=== PATIENT | male | born 1960 | race Caucasian/White ===

== ENCOUNTER 2024-12-22 22:53 | Emergency (ER) | payer OTHER, SELFPAY ==
[2024-12-22 22:59] VITALS: BP 140/77; PULSE 64; TEMP 36.8; O2SAT 94; BMI 30.3
--- NOTE | 2024-12-22 23:08 | ED_ITS ---
HPI HPI - General Adult General Chief complaint: Skin/Abscess/Foreign Body Stated complaint: HEAD INJURY Time Seen by Provider: 12/22/24 23:00 Source: patient Mode of arrival: walk-in Limitations: no limitations History of Present Illness HPI narrative: 64-year-old male presents for an injury to his face. 4 days ago he got hit chest lateral to his right eye with a piece of metal at work. In the intervening days he has noted some swelling and some redness and he is putting putting bacitracin on it. He states that when it first occurred there was a small break in the skin but no deep laceration. No LOC or vomiting. Related Data Previous Rx's ?Medication ?Instructions ?Recorded cephalexin 500 mg capsule 500 mg PO QID 10 days #40 caps 12/23/24 Allergies Allergy/AdvReac Type Severity Reaction Status Date / Time bandaids Allergy Mild Blister Uncoded 12/22/24 23:02 Opioid HPI Opioid Management Most Recent Opioid Data: No Data to Display Review of Systems ROS Narrative A ten point review of systems is negative except as noted above. Exam Narrative Exam Narrative: Nurses note and vital signs reviewed and patient is not hypoxic. General: The patient appears well and in no apparent distress. Patient is resting comfortably on cart. Skin: Warm, dry, no pallor noted. There is no rash noted. Head: Normocephalic, atraumatic Eye: Normal conjunctiva, no drainage, EOMI. PERRL; he has right periorbital swelling and some erythema. There is no laceration. There appears to be an abrasion just lateral and superior to the lateral [place] area Ears, Nose, Mouth, and Throat: oral mucosa is moist. Nares patent. Cardiovascular: Regular Rate and Rhythm Respiratory: Patient is in no distress, no accessory muscle use, lungs are clear to auscultation, no wheezing, rales or rhonchi Back: non-tender GI: Soft and nontender Musculoskeletal: The patient has no evidence of calf tenderness, no pitting edema, symmetrical pulses noted bilaterally Neurological: A&O, normal speech; upper and lower extremity strength and Psychiatric: Cooperative Constitutional Vital Signs, click to edit/add: Last Vital Signs Temp 98.2 F 12/22/24 22:59 Pulse 64 12/22/24 22:59 Resp 18 12/22/24 22:59 BP 140/77 12/22/24 22:59 Pulse Ox 94 L 12/22/24 22:59 O2 Del Method Room Air 12/22/24 22:59 Course Vital Signs Vital signs: Vital Signs Temperature 98.2 F 12/22/24 22:59 Pulse Rate 64 12/22/24 22:59 Respiratory Rate 18 12/22/24 22:59 Blood Pressure 140/77 12/22/24 22:59 Pulse Oximetry 94 L 12/22/24 22:59 Oxygen Delivery Method Room Air 12/22/24 22:59 Temperature 98.2 F 12/22/24 22:59 Pulse Rate 64 12/22/24 22:59 Respiratory Rate 18 12/22/24 22:59 Blood Pressure 140/77 12/22/24 22:59 Pulse Oximetry 94 L 12/22/24 22:59 Oxygen Delivery Method Room Air 12/22/24 22:59 Medical Decision Making MDM Narrative Medical decision making narrative: CT shows no acute findings. I suspect he may have cellulitis. I do not suspect periorbital cellulitis. He was given IM Ancef and prescribed Keflex. I do not suspect shingles at this point. Treatment diagnosis and follow-up were discussed with the patient. Differential Diagnosis Differential Diagnosis: Contusion, cellulitis, herpes zoster Imaging Data CT scan - head: Radiologist's impression: Mild generalized brain volume loss consistent with age, focal area of encephalomalacia, no acute fracture or dislocation, mild right periorbital soft tissue swelling Discharge Plan Discharge Chief Complaint: Skin/Abscess/Foreign Body Clinical Impression: Cellulitis Patient Disposition: Home, Self-Care Time of Disposition Decision: 01:24 Condition: Good Mode of Transportation: Private Vehicle Prescriptions / Home Meds: New cephalexin 500 mg capsule 500 mg PO QID 10 Days Qty: 40 0RF Print Language: British Instructions: Cellulitis (ED) Referrals: Alisson Walsh [employer] [Primary Care Provider] - 1 week
[2024-12-23] MEDS: CEFAZOLIN SODIUM 1,000 MG, WATER FOR INJECTION,STERILE 2.5 ML IM (01:53)
== END 2024-12-23 01:55 | disposition home or self-care (01) ==
PROVIDERS: Emergency Provider Emergency Medicine; PCP Nurse Practitioner
DX: L03.211 Cellulitis of face (principal)
CPT/HCPCS: 70450; 96372; 99284; J0690

== ENCOUNTER 2025-01-15 07:08 | Outpatient (OUT) | payer OTHER, SELFPAY | END 2025-01-15 07:09 | disposition home or self-care (01) | LOC: RAD 07:09 | PROVIDERS: PCP Nurse Practitioner; Visit Provider Preventive Medicine Preventive Medicine/Occupational Environmental Medicine | DX: M25.511 Pain in right shoulder (principal) | CPT/HCPCS: 73030 ==